=== PATIENT | male | born 1945 | race African-American/Black ===

== ENCOUNTER 2024-09-02 10:43 | Inpatient (IN) | payer MEDICAID, OTHER ==
[~2024-09-02] VITALS: Ht 170.2 cm; Wt 68.2 kg
[~2024-09-02 10:43] MED LIST: ASPI-1450 PO; CARV6.25 PO; FERR325T27 PO; FURO10VI34 PO; METF-445 PO; NITR0.4T50 SL; OMEP20 PO; OXYB5TAB20 PO; PRAV40TA4 PO; SPIR-37 PO
[2024-09-02 11:41] LABS: BASOPHILS % (AUTO) 0.3 % (0.0-2.0); EOSINOPHILS % (AUTO) 0.6 % (1.0-6.0); HEMATOCRIT 35.4 % (41-53); HEMOGLOBIN 11.5 g/dL (13.5-17.5); LYMPHOCYTES # (AUTO) 0.8 K/uL (1.0-4.8); LYMPHOCYTES % (AUTO) 11.7 % (22.0-44.0); MEAN CORPUSCULAR HEMOGLOBIN 27.3 pg (26.0-34.0); MEAN CORPUSCULAR HGB CONC 32.5 G/dL (31.0-37.0); MEAN CORPUSCULAR VOLUME 84 fL (80-100); MONOCYTES # (AUTO) 0.6 K/uL (0.1-1.0); MONOCYTES % (AUTO) 9.9 % (2.0-9.0); NEUTROPHILS # (AUTO) 5.1 K/uL (1.8-7.7); NEUTROPHILS % (AUTO) 77.5 % (40.0-70.0); PLATELET COUNT (AUTO) 136 K/uL (150-450); RED BLOOD CELL COUNT(AUTO) 4.21 MIL/uL (4.50-5.90); RED CELL DISTRIBUTION WIDTH 15.8 % (11.5-14.5); WHITE BLOOD COUNT (AUTO) 6.5 K/uL (4.5-11.0)
[2024-09-02 11:58] LABS: COVID AG,FIA SOURCE NASAL SWAB
[2024-09-02 12:03] LABS: ANION GAP 7 mmol/L (8-16); CALCIUM, TOTAL 8.6 mg/dL (8.8-10.5); CARBON DIOXIDE 27 mmol/L (22-29); CHLORIDE 110 mmol/L (98-107); CREATININE 1.05 mg/dL (0.60-1.30); GLOMERULAR FILTR. RATE CALC > 60 mL/min (>60); GLUCOSE,RANDOM 100 mg/dL (70-110); POTASSIUM 4.1 mmol/L (3.5-5.1); SODIUM SERUM 144 mmol/L (136-145); UREA NITROGEN, BLOOD 24 mg/dL (7-18)
[2024-09-02 12:55] LABS: SARS-COV2 (COVID) ANTIGEN,FIA Negative (Negative)
[2024-09-02 12:56] LABS: INFLUENZA TYPE B NEGATIVE FOR TYPE B (NEGATIVE)
[2024-09-02 13:11] LABS: INFLUENZA TYPE A POSITIVE FOR TYPE A (NEGATIVE)
[2024-09-02] MEDS: ALBUTEROL SULFATE 2.5 MG/0.5 ML NEB SOLUTION NEB ONE (17:30)
[2024-09-02] MEDS: IPRATROPIUM BROMIDE 0.5 MG/2.5 ML NEB SOLUTION NEB ONE (17:30)
[2024-09-02] MEDS: OSELTAMIVIR PHOSPHATE 75 MG CAPSULE PO ONE (17:43)
[2024-09-02] MEDS: SODIUM CHLORIDE 0.9% 1,000 ML IV ONE (17:43)
[2024-09-02] MEDS: KETOROLAC TROMETHAMINE 30 MG/ML VIAL IVP ONE (17:43)
[2024-09-02] MEDS: LEVOFLOXACIN 750 MG/D5% WATER 150 ML IV ONE (19:17)
[2024-09-02] MEDS: OxyCODONE HCL/ACETAMINOPHEN 5-325 MG TABLET PO ONE (19:54)
[2024-09-02] MEDS: AZITHROMYCIN 500 MG/NS 250 ML IV ONE (20:54)
[2024-09-02] MEDS ORDERED: METF-1211 PO (21:11)
[2024-09-02] MEDS ORDERED: ALBUTEROL SULFATE 2.5 MG/0.5 ML NEB SOLUTION NEB PRN (21:15)
[2024-09-02] MEDS ORDERED: ZOLPIDEM TARTRATE 5 MG TABLET PO PRN (21:15)
[2024-09-02] MEDS ORDERED: IPRATROPIUM BROMIDE 0.5 MG/2.5 ML NEB SOLUTION NEB PRN (21:15)
[2024-09-02] MEDS ORDERED: NITROGLYCERIN 0.4 MG SUBLINGUAL TABLET #25 SL PRN (21:15)
[2024-09-02] MEDS ORDERED: MAGNESIUM HYDROXIDE SUSPENSION 30 ML UDCUP PO PRN (21:15)
[2024-09-02] MEDS ORDERED: BISACODYL 10 MG RECTAL RECTAL SUPPOSITORY PR PRN (21:15)
[2024-09-02] MEDS ORDERED: ONDANSETRON HCL 4 MG/2 ML VIAL IVP PRN (21:15)
[2024-09-02] MEDS: ALBUTEROL SULFATE 2.5 MG/0.5 ML NEB SOLUTION NEB SCH (23:00)
[2024-09-02] MEDS: IPRATROPIUM BROMIDE 0.5 MG/2.5 ML NEB SOLUTION NEB SCH (23:00)
[2024-09-02 23:17] VITALS: BP 125/76; PULSE 67; RESP 18; TEMP 98.1; O2SAT 98
[2024-09-02] MEDS: MethylPREDNISolone SOD SUCC 40 MG/ML VIAL IVP SCH (23:34)
[2024-09-02] MEDS: HEPARIN SODIUM,PORCINE 5,000 UNITS/ML VIAL SQ SCH (23:34)
[2024-09-03] VITALS (14 sets, daily range): BP systolic 138–144; BP diastolic 74–81; PULSE 61–82; RESP 18–22; TEMP 97.8–98; O2SAT 92–100
[2024-09-03] MEDS: MORPHINE SULFATE 2 MG/ML SYRINGE IVP PRN (05:59)
[2024-09-03] MEDS: DOCUSATE SODIUM 100 MG CAPSULE PO SCH (09:00)
[2024-09-03] MEDS: OXYBUTYNIN CHLORIDE 5 MG TABLET PO SCH (09:17)
[2024-09-03] MEDS: CARVEDILOL 6.25 MG TABLET PO SCH (09:17)
[2024-09-03] MEDS: ASPIRIN 81 MG CHEWABLE TABLET PO SCH (09:17)
[2024-09-03] MEDS: SPIRONOLACTONE 25 MG TABLET PO SCH (09:18)
[2024-09-03] MEDS: PRAVASTATIN SODIUM 40 MG TABLET PO SCH (09:18)
[2024-09-03] MEDS: OMEPRAZOLE 20 MG CAPSULE PO SCH (09:18)
[2024-09-03] MEDS: PANTOPRAZOLE SODIUM 40 MG DR TABLET PO SCH (09:18)
[2024-09-03] MEDS: FERROUS SULFATE 325 MG EC TABLET PO SCH (09:19)
[2024-09-03] MEDS: MetFORMIN HCL 850 MG TABLET PO SCH (09:19)
[2024-09-03] MEDS: LEVOFLOXACIN 750 MG/D5% WATER 150 ML IV SCH (09:25)
[2024-09-03] MEDS ORDERED: SODIUM CHLORIDE 0.9% 500 ML IV ONE (09:26)
[2024-09-03] MEDS: OSELTAMIVIR PHOSPHATE 75 MG CAPSULE PO SCH (09:34)
[2024-09-03 10:14] LABS: EOSINOPHILS % (AUTO) 0 % (1.0-6.0); HEMATOCRIT 36.9 % (41-53); LYMPHOCYTES # (AUTO) 0.6 K/uL (1.0-4.8); MEAN CORPUSCULAR HGB CONC 32.4 G/dL (31.0-37.0); MEAN CORPUSCULAR VOLUME 83 fL (80-100); MONOCYTES # (AUTO) 0.1 K/uL (0.1-1.0); MONOCYTES % (AUTO) 1.9 % (2.0-9.0); NEUTROPHILS # (AUTO) 4.7 K/uL (1.8-7.7); PLATELET COUNT (AUTO) 118 K/uL (150-450); RED BLOOD CELL COUNT(AUTO) 4.43 MIL/uL (4.50-5.90); RED CELL DISTRIBUTION WIDTH 15.8 % (11.5-14.5); WHITE BLOOD COUNT (AUTO) 5.3 K/uL (4.5-11.0)
[2024-09-03 10:17] LABS: NEUTROPHILS % (AUTO) 87.1 % (40.0-70.0)
[2024-09-03 10:33] LABS: ANION GAP 9 mmol/L (8-16); CALCIUM, TOTAL 8.6 mg/dL (8.8-10.5); CARBON DIOXIDE 24 mmol/L (22-29); CHLORIDE 110 mmol/L (98-107); CREATININE 0.97 mg/dL (0.60-1.30); GLOMERULAR FILTR. RATE CALC > 60 mL/min (>60); GLUCOSE,RANDOM 189 mg/dL (70-110); POTASSIUM 4.6 mmol/L (3.5-5.1); SODIUM SERUM 143 mmol/L (136-145); UREA NITROGEN, BLOOD 22 mg/dL (7-18)
[2024-09-03 10:41] LABS: ALANINE AMINOTRANSFERASE 28 U/L (12-78); ALBUMIN 2.6 g/dL (3.4-5.0); ALKALINE PHOSPHATASE 66 U/L (46-116); ASPARTATE AMINOTRANSFERASE 37 U/L (15-37); BILIRUBIN,TOTAL 1.8 mg/dL (0.1-1.0); TOTAL PROTEIN, SERUM 6.4 g/dL (6.4-8.2)
[2024-09-03 11:35] LABS: GLUCOMETER DEV NAME(LOC) 6S.1D; GLUCOSE,POINT OF CARE 125 MG/DL (70-110)
[2024-09-03] MEDS: OxyCODONE HCL/ACETAMINOPHEN 5-325 MG TABLET PO PRN (17:45)
[2024-09-04] VITALS (11 sets, daily range): BP systolic 142–150; BP diastolic 81–85; PULSE 61–80; RESP 16–20; TEMP 97.6–98.1; O2SAT 93–99
[2024-09-04] MEDS: PredniSONE 20 MG TABLET PO SCH (11:08)
[2024-09-04] MEDS: BENZOCAINE/MENTHOL LOZENGE PO PRN (13:53)
[2024-09-04] MEDS: ACETAMINOPHEN 325 MG TABLET PO PRN (20:35)
[2024-09-05] VITALS (8 sets, daily range): BP systolic 136–155; BP diastolic 73–89; PULSE 62–74; RESP 18–20; TEMP 97.8; O2SAT 94–100
[2024-09-05] MEDS ORDERED: MINERAL OIL/PETROLATUM 120 GM CREAM TP PRN (15:45)
[2024-09-05] MEDS ORDERED: NITROGLYCERIN 0.4 MG SUBLINGUAL TABLET #25 SL PRN (15:45)
[2024-09-05] MEDS ORDERED: ATOR40TA28 PO ×3 (16:04→16:42)
[2024-09-05] MEDS ORDERED: TIOT185 IH (16:04)
[2024-09-05] MEDS ORDERED: DICL100G60 TP (16:04)
[2024-09-05] MEDS ORDERED: XALA2.5OS OU (16:04)
[2024-09-05] MEDS ORDERED: CARV12 PO (16:04)
[2024-09-05] MEDS ORDERED: MAGNESIUM HYDROXIDE SUSPENSION 30 ML UDCUP PO PRN (16:15)
[2024-09-05] MEDS ORDERED: LEVALBUTEROL TARTRATE HFA 45 MCG/PUFF 15 GM INHALER IH PRN (16:15)
[2024-09-05] MEDS ORDERED: TAMS0.4C94 PO (16:39)
[2024-09-05] MEDS ORDERED: FOLI0.4T6 PO (16:40)
[2024-09-05] MEDS ORDERED: MIRT-89 PO (16:51)
[2024-09-05] MEDS ORDERED: PANT-31 PO (16:51)
[2024-09-05] MEDS ORDERED: MOME13HF11 IH (16:51)
[2024-09-05] MEDS ORDERED: BACL10TA PO (16:51)
[2024-09-05] MEDS ORDERED: ISOS10TA16 PO (16:51)
[2024-09-05] MEDS ORDERED: LEVA15HF3 PO (16:56)
[2024-09-05] MEDS ORDERED: LISI-894 PO (16:56)
[2024-09-05] MEDS: LEVOFLOXACIN 750 MG TABLET PO SCH (18:10)
[2024-09-05] MEDS: TraMADol HCL 50 MG TABLET PO ONE (18:11)
[2024-09-05] MEDS: MIRTAZAPINE 15 MG TABLET PO SCH (21:43)
[2024-09-05] MEDS: BACLOFEN 10 MG TABLET PO SCH (21:44)
[2024-09-05] MEDS: ISOSORBIDE DINITRATE 10 MG TABLET PO SCH (21:44)
[2024-09-05] MEDS: CARVEDILOL 12.5 MG TABLET PO SCH (21:44)
[2024-09-05] MEDS: TAMSULOSIN HCL 0.4 MG CAPSULE PO SCH (21:46)
[2024-09-06] MEDS ORDERED: ASPIRIN 81 MG CHEWABLE TABLET PO SCH (09:00)
[2024-09-06] MEDS ORDERED: PANTOPRAZOLE SODIUM 40 MG DR TABLET PO SCH ×2 (09:00)
[2024-09-06] MEDS ORDERED: LISINOPRIL 20 MG TABLET PO SCH (09:00)
[2024-09-06] MEDS ORDERED: FOLIC ACID 1 MG TABLET PO SCH (09:00)
== END 2024-09-06 01:10 | DRG 193 ==
LOC: EMS 10:47 → EDH 21:21 → 6S 22:30
PROVIDERS: ADMIT Hospitalist; ATTEND Hospitalist
DX: J10.1 Influenza due to other identified influenza virus with other respiratory manifestations (principal); J96.20 Acute and chronic respiratory failure, unspecified whether with hypoxia or hypercapnia; J44.1 Chronic obstructive pulmonary disease with (acute) exacerbation; I50.22 Chronic systolic (congestive) heart failure; Z20.822 Contact with and (suspected) exposure to COVID-19; E11.9 Type 2 diabetes mellitus without complications; I11.0 Hypertensive heart disease with heart failure; D69.6 Thrombocytopenia, unspecified; Z88.0 Allergy status to penicillin; Z95.1 Presence of aortocoronary bypass graft; Z79.84 Long term (current) use of oral hypoglycemic drugs; Z79.899 Other long term (current) drug therapy; Z79.82 Long term (current) use of aspirin
CPT/HCPCS: 71045; 80048; 80053; 82962; 85025; 87430; 87804; 93005; 93306; 94640; 96361; 96365; 96367; 96375; 99285; J0456; J1644; J1885; J1956; J2270; J7030; J7040; 36415-L1; 36415-TC; J7613